=== PATIENT | male | born 1945 | race Caucasian/White ===

== ENCOUNTER 2022-10-07 22:31 | Inpatient (IN) | payer MEDICARE, OTHER ==
[2022-10-07] MEDS ORDERED: Sodium Chloride 0.9% 1,000 ML IV SCH (22:45)
[2022-10-07 23:03] LABS: BASOPHILS ABSOLUTE AUTO 0.1 x10-3/uL (0.0-0.3); BASOPHILS PERCENT AUTO 0.5 % (0.3-3.8); BLOOD UREA NITROGEN,BUN 23 mg/dL (7-18); BUN/CREATININE RATIO 17.7 (9-20); CALCIUM 8.8 mg/dL (8.6-10.2); CARBON DIOXIDE,CO2 27 mmol/L (21-32); CHLORIDE,CL 100 mmol/L (100-110); CREATININE 1.3 mg/dL (0.70-1.30); EOSINOPHILS ABSOLUTE AUTO 0.2 x10-3/uL (0.0-0.6); EOSINOPHILS PERCENT AUTO 1.4 % (0.1-6.8); ESTIMATED GFR 57 mL/min (>60); GLUCOSE RANDOM 191 mg/dL (80-116); HEMATOCRIT 45.1 % (38.3-50.1); HEMOGLOBIN 15.4 g/dL (12.9-17.7); LYMPHOCYTES ABSOLUTE AUTO 2.3 x10-3/uL (0.5-4.5); LYMPHOCYTES PERCENT AUTO 14.1 % (15.8-45.3); MEAN CORPUSCULAR HEMOGLOBIN 30.7 pg (27.0-33.3); MEAN CORPUSCULAR HGB CONC 34.1 g/dL (28.7-35.3); MEAN CORPUSCULAR VOLUME 90.1 fL (80.8-98.7); MEAN PLATELET VOLUME 9.2 fL (6.7-11.0); MONOCYTES ABSOLUTE AUTO 2.1 x10-3/uL (0.0-1.2); MONOCYTES PERCENT AUTO 12.7 % (5.5-15.2); NEUTROPHILS ABSOLUTE AUTO 11.7 x10-3/uL (1.7-6.9); NEUTROPHILS PERCENT AUTO 71.2 % (40.3-71.8); PLATELET COUNT,PLT 244 x10(3)uL (117-477); POTASSIUM,K 4.1 mmol/L (3.5-5.3); RED BLOOD CELL COUNT 5.01 x10(6)uL (3.90-5.90); RED CELL DISTRIBUTION WIDTH 13.1 % (12.4-15.0); SODIUM,NA 136 mmol/L (135-145); WHITE BLOOD CELL COUNT,WBC 16.5 x10-3/uL (3.2-10.1)
[2022-10-07] MEDS ORDERED: Acetaminophen 325 MG Tab PO PRN (23:26)
[2022-10-07 23:31] LABS: CREATINE KINASE,CK 2631 IU/L (60-160)
[2022-10-08] MEDS: Enoxaparin 40 MG/0.4 ML Syringe SUBCUT SCH ×2 (00:21→23:41)
[2022-10-08] MEDS: Sodium Chloride 0.9% 1,000 ML IV SCH ×3 (00:25→17:59)
[2022-10-08 05:38] LABS: BILIRUBIN,URINE NEGATIVE (NEGATIVE); GLUCOSE,URINE NORMAL (NORMAL); KETONES,URINE 15 mg/dL (NEGATIVE); LEUKOCYTE ESTERASE,URINE LARGE (NEGATIVE); NITRITE,URINE NEGATIVE (NEGATIVE); OCCULT BLOOD,URINE MODERATE (NEGATIVE); PROTEIN,URINE TRACE mg/dL (NEGATIVE); UROBILINOGEN,URINE 1 mg/dL (NEGATIVE)
[2022-10-08 05:39] LABS: APPEARANCE,URINE CLOUDY (CLEAR); COLOR,URINE YELLOW (YELLOW)
[2022-10-08 05:40] LABS: BACTERIA,URINE MODERATE (NS); HYALINE CASTS,URINE FEW (NS); SQUAMOUS EPITHELIAL CELLS,UR FEW (NS,R,O); WBC,URINE 75-100 (0-5)
[2022-10-08 06:44] LABS: BASOPHILS ABSOLUTE AUTO 0.1 x10-3/uL (0.0-0.3); HEMOGLOBIN 14.2 g/dL (12.9-17.7); MEAN CORPUSCULAR HEMOGLOBIN 30.4 pg (27.0-33.3); MEAN CORPUSCULAR HGB CONC 33.6 g/dL (28.7-35.3); MEAN CORPUSCULAR VOLUME 90.4 fL (80.8-98.7); MONOCYTES ABSOLUTE AUTO 1.8 x10-3/uL (0.0-1.2)
[2022-10-08 06:46] LABS: BASOPHILS PERCENT AUTO 0.6 % (0.3-3.8); EOSINOPHILS ABSOLUTE AUTO 0.3 x10-3/uL (0.0-0.6); EOSINOPHILS PERCENT AUTO 2.2 % (0.1-6.8); HEMATOCRIT 42.2 % (38.3-50.1); LYMPHOCYTES ABSOLUTE AUTO 2.7 x10-3/uL (0.5-4.5); LYMPHOCYTES PERCENT AUTO 19.3 % (15.8-45.3); MONOCYTES PERCENT AUTO 12.5 % (5.5-15.2); NEUTROPHILS ABSOLUTE AUTO 9.3 x10-3/uL (1.7-6.9); NEUTROPHILS PERCENT AUTO 65.4 % (40.3-71.8); PLATELET COUNT,PLT 223 x10(3)uL (117-477); RED BLOOD CELL COUNT 4.67 x10(6)uL (3.90-5.90); RED CELL DISTRIBUTION WIDTH 12.7 % (12.4-15.0); WHITE BLOOD CELL COUNT,WBC 14.2 x10-3/uL (3.2-10.1)
[2022-10-08] MEDS ORDERED: cefTRIAXone 2 GM Vial IVPUSH ONE (07:49)
[2022-10-08] MEDS ORDERED: Pantoprazole 40 MG Vial IVPUSH ONE (08:47)
[2022-10-08] MEDS: Ciprofloxacin 0.3% Ophth Soln 2.5 ML Bottle EYEBOTH SCH ×5 (09:07→23:41)
[2022-10-08] MEDS ORDERED: CAMPHOR TOP PRN (21:17)
[2022-10-08] MEDS ORDERED: MENTHOL TOP PRN (21:17)
[2022-10-08] MEDS ORDERED: [UNRECOGNIZED DRUG - OTHER] TOP PRN (21:17)
[2022-10-08] MEDS ORDERED: Oxymetazoline 0.05% Nasal Spray 30 ML Bottle NAS PRN (22:01)
[2022-10-09] MEDS: Sodium Chloride 0.9% 1,000 ML IV SCH (01:53)
[2022-10-09] MEDS: Ciprofloxacin 0.3% Ophth Soln 2.5 ML Bottle EYEBOTH SCH ×4 (04:37→16:10)
[2022-10-09] MEDS ORDERED: Pantoprazole 40 MG Tab.CR PO SCH (06:00)
[2022-10-09 06:33] LABS: BASOPHILS ABSOLUTE AUTO 0.1 x10-3/uL (0.0-0.3); BASOPHILS PERCENT AUTO 1.1 % (0.3-3.8); EOSINOPHILS ABSOLUTE AUTO 0.6 x10-3/uL (0.0-0.6); EOSINOPHILS PERCENT AUTO 6.3 % (0.1-6.8); HEMATOCRIT 38.6 % (38.3-50.1); HEMOGLOBIN 13.1 g/dL (12.9-17.7); LYMPHOCYTES ABSOLUTE AUTO 2.4 x10-3/uL (0.5-4.5); LYMPHOCYTES PERCENT AUTO 25.1 % (15.8-45.3); MEAN CORPUSCULAR HEMOGLOBIN 30.7 pg (27.0-33.3); MEAN CORPUSCULAR HGB CONC 33.9 g/dL (28.7-35.3); MEAN CORPUSCULAR VOLUME 90.6 fL (80.8-98.7); MEAN PLATELET VOLUME 8.5 fL (6.7-11.0); MONOCYTES ABSOLUTE AUTO 1.2 x10-3/uL (0.0-1.2); NEUTROPHILS ABSOLUTE AUTO 5.2 x10-3/uL (1.7-6.9); NEUTROPHILS PERCENT AUTO 54.5 % (40.3-71.8); PLATELET COUNT,PLT 214 x10(3)uL (117-477); RED BLOOD CELL COUNT 4.26 x10(6)uL (3.90-5.90); WHITE BLOOD CELL COUNT,WBC 9.5 x10-3/uL (3.2-10.1)
[2022-10-09 06:38] LABS: BLOOD UREA NITROGEN,BUN 18 mg/dL (7-18); BUN/CREATININE RATIO 22.5 (9-20); CALCIUM 8.1 mg/dL (8.6-10.2); CARBON DIOXIDE,CO2 28 mmol/L (21-32); CHLORIDE,CL 104 mmol/L (100-110); CREATININE 0.8 mg/dL (0.70-1.30); EST CRCL DRUG DOSING (CG) 84.88 mL/min; ESTIMATED GFR 91 mL/min (>60); GLUCOSE RANDOM 158 mg/dL (80-116); POTASSIUM,K 3.3 mmol/L (3.5-5.3); SODIUM,NA 139 mmol/L (135-145)
[2022-10-09] MEDS ORDERED: Amoxicillin/Clavulanate K 875-125 MG Tab PO SCH (08:30)
[2022-10-09] MEDS ORDERED: BERBERINE COMPLEX PO SCH (09:00)
[2022-10-09] MEDS ORDERED: Potassium Chloride 20 MEQ Tab.ER PO ONE (09:09)
== END 2022-10-09 16:23 | disposition home or self-care (01) | DRG 565 ==
LOC: FB.ED 22:31 → FB.MS 10-08 00:50 → OBSVTOIN 10-08 07:47
PROVIDERS: ADMIT Family Medicine; ATTEND Student in an Organized Health Care Education/Training Program
DX: T79.6XXA Traumatic ischemia of muscle, initial encounter (principal); N39.0 Urinary tract infection, site not specified; E86.0 Dehydration; E66.01 Morbid (severe) obesity due to excess calories; W08.XXXA Fall from other furniture, initial encounter; H10.023 Other mucopurulent conjunctivitis, bilateral; Z51.5 Encounter for palliative care; Z68.36 Body mass index [BMI] 36.0-36.9, adult; Z90.49 Acquired absence of other specified parts of digestive tract; Z98.890 Other specified postprocedural states
CPT/HCPCS: 36415; 70450; 71046; 80048; 81001; 82550; 83735; 83880; 84484; 85025; 87086; 87186; 93005; 96360; 96361; 96372; 97161-GP; 99222; 99239; 99285-25; A9270-GY; C9113; G0378; J0696; J1650; J7030

== ENCOUNTER 2023-07-04 18:12 | Emergency (ER) | payer OTHER, MEDICARE ==
[2023-07-04 18:36] LABS: HEMOGLOBIN 14.9 g/dL (12.9-17.7); MEAN CORPUSCULAR HEMOGLOBIN 30.4 pg (27.0-33.3); MEAN CORPUSCULAR HGB CONC 33.9 g/dL (28.7-35.3); MEAN CORPUSCULAR VOLUME 89.6 fL (80.8-98.7); MEAN PLATELET VOLUME 8.3 fL (6.7-11.0); PLATELET COUNT,PLT 197 x10(3)uL (117-477); RED BLOOD CELL COUNT 4.91 x10(6)uL (3.90-5.90); RED CELL DISTRIBUTION WIDTH 12.9 % (12.4-15.0); WHITE BLOOD CELL COUNT,WBC 13.1 x10-3/uL (3.2-10.1)
[2023-07-04 18:59] LABS: LYMPHOCYTES PERCENT MAN 10 % (13-37); MONOCYTES PERCENT MAN 14 % (4-12); SEG NEUTROPHILS PERCENT MAN 76 % (46-82)
[2023-07-04] MEDS: Sodium Chloride 0.9% 1,000 ML IV SCH (19:00)
[2023-07-04] MEDS: Sodium Chloride 0.9% 10 ML Syringe FLUSH PRN (19:06)
[2023-07-04 19:12] LABS: CORONAVIRUS COVID-19 NAA NEGATIVE (NEGATIVE); INFLUENZA A NAA NEGATIVE (NEGATIVE); INFLUENZA B NAA NEGATIVE (NEGATIVE); RESPIRATORY SYNCYTIAL VIR NAA NEGATIVE (NEGATIVE)
[2023-07-04] MEDS: Acetaminophen 500 MG Tab PO ONE (19:53)
[2023-07-04 19:58] LABS: CARBON DIOXIDE,CO2 27 mmol/L (21-32); CHLORIDE,CL 96 mmol/L (100-110); GLUCOSE RANDOM 181 mg/dL (80-116); POTASSIUM,K 3.4 mmol/L (3.5-5.3); SODIUM,NA 135 mmol/L (135-145)
[2023-07-04 19:59] LABS: A/G RATIO 0.8; ALANINE AMINOTRANSFERASE,ALT 24 U/L (12-36); ALBUMIN 3.1 g/dL (3.2-4.6); ALKALINE PHOSPHATASE 70 IU/L (56-112); ASPARTATE AMNIOTRANSFERASE,AST 24 IU/L (5-25); BILIRUBIN TOTAL 1.3 mg/dL (0.1-1.3); BLOOD UREA NITROGEN,BUN 16 mg/dL (7-18); BUN/CREATININE RATIO 10.7 (9-20); CALCIUM 8.7 mg/dL (8.6-10.2); CREATININE 1.5 mg/dL (0.70-1.30); EST CRCL DRUG DOSING (CG) 44.55 mL/min; ESTIMATED GFR 47 mL/min (>60)
[2023-07-04 20:08] LABS: LACTIC ACID 2.3 mmol/L (0.4-2.0)
[2023-07-04] MEDS: Levofloxacin/Dextrose 5%-Water 500 MG in Premix Bag 1 BAG IV ONE (20:18)
[2023-07-04 20:39] LABS: BILIRUBIN,URINE NEGATIVE (NEGATIVE); GLUCOSE,URINE NORMAL (NORMAL); KETONES,URINE NEGATIVE (NEGATIVE); LEUKOCYTE ESTERASE,URINE LARGE (NEGATIVE); NITRITE,URINE POSITIVE (NEGATIVE); OCCULT BLOOD,URINE LARGE (NEGATIVE); PROTEIN,URINE 100 mg/dL (NEGATIVE); UROBILINOGEN,URINE NORMAL (NEGATIVE)
[2023-07-04 20:40] LABS: APPEARANCE,URINE CLOUDY (CLEAR); BACTERIA,URINE MANY (NS); COLOR,URINE YELLOW (YELLOW); RBC,URINE >100 (0-5); SQUAMOUS EPITHELIAL CELLS,UR FEW (NS,R,O); WBC,URINE >100 (0-5)
== END 2023-07-04 22:33 ==
LOC: FB.ED 18:12
DX: A41.9 Sepsis, unspecified organism (principal); N39.0 Urinary tract infection, site not specified; E66.01 Morbid (severe) obesity due to excess calories; I10 Essential (primary) hypertension; Z90.49 Acquired absence of other specified parts of digestive tract; Z79.899 Other long term (current) drug therapy; Z68.37 Body mass index [BMI] 37.0-37.9, adult
CPT/HCPCS: 0241U; 36415; 70450; 71045; 80053; 81001; 83605; 84484; 85025; 87040; 87086; 87088; 87186; 93005; 93010; 96361; 96365; 99285; 99285-25; A9270-GY; C1758; J1956; J3490; J7030

== ENCOUNTER 2024-11-16 10:29 | Emergency (ER) | payer OTHER, MEDICARE | END 2024-11-16 11:25 | disposition home or self-care (01) | LOC: FB.ED 10:29 | DX: N48.1 Balanitis (principal); N47.1 Phimosis; I10 Essential (primary) hypertension; E66.9 Obesity, unspecified; Z79.899 Other long term (current) drug therapy; Z88.2 Allergy status to sulfonamides; Z88.8 Allergy status to other drugs, medicaments and biological substances; Z68.41 Body mass index [BMI] 40.0-44.9, adult | CPT/HCPCS: 99283 ==